=== PATIENT | female | born 1965 | race Caucasian/White ===

== ENCOUNTER 2016-07-30 11:10 | Emergency (ER) | payer BC ==
[~2016-07-30] VITALS: Ht 172.7 cm; Wt 122.4 kg
[~2016-07-30 11:10] MED LIST: IBUP-1955 PO; OXCA300T4 PO; TRAM50TA2 PO
[2016-07-30 11:39] LABS: *BILIRUBIN,URIN NEGATIVE (NEGATIVE); *BLOOD, URINE 2+ (NEGATIVE); *CLARITY,URINE SLIGHTLY CLOUDY (CLEAR); *COLOR,URINE YELLOW (YELLOW); *KETONES,URINE NEGATIVE (NEGATIVE); *PROTEIN,URINE TRACE (NEGATIVE); *UROBILINOGEN,URINE 0.2 E.U./dl (NORMAL); LEUKOCYTE ESTERASE ,URINE TRACE (NEGATIVE); NITRITE, URINE POSITIVE (NEGATIVE); UGLUCOSE NEGATIVE (NEGATIVE)
[2016-07-30 11:40] LABS: *URINE HCG, QUAL NEGATIVE (NEGATIVE)
[2016-07-30 11:46] LABS: BACTERIA,URINE MANY /HPF (NONE SEEN); SQUAMOUS EPITHELIAL CELL,UR MODERATE /HPF (NONE SEEN)
[2016-07-30] MEDS: FLUCONAZOLE 100 MG TABLET PO ONE (12:08)
[2016-07-30] MEDS: DOXYCYCLINE HYCLATE 100 MG TABLET PO ONE (12:08)
--- NOTE | 2016-07-30 12:16 | NUR ---
Patient discharged to home in stable conditon. Written and verbal after care instructions given, along with prescription as ordered by MD. Patient verbalizes understanding of instructions. No further questions or concerns noted prior on leaving the ED.
[2016-07-30] MEDS ORDERED: FLUCONAZOLE 100 MG TABLET ONE (12:17)
[2016-07-30] MEDS ORDERED: DOXYCYCLINE HYCLATE 100 MG TABLET ONE (12:17)
== END 2016-07-30 12:17 | disposition home or self-care (01) ==
LOC: ER 11:10
DX: N39.0 Urinary tract infection, site not specified (principal); F41.9 Anxiety disorder, unspecified; F31.9 Bipolar disorder, unspecified; Z87.442 Personal history of urinary calculi
CPT/HCPCS: 84703; 87077; 87086; 87491; A4663

== ENCOUNTER 2017-02-11 19:11 | Emergency (ER) | payer BC ==
[~2017-02-11] VITALS: Ht 170.2 cm; Wt 117.9 kg
[2017-02-11 19:55] LABS: *BILIRUBIN,URIN NEGATIVE (NEGATIVE); *BLOOD, URINE Trace-lysed (NEGATIVE); *CLARITY,URINE SLIGHTLY CLOUDY (CLEAR); *COLOR,URINE DARK YELLOW (YELLOW); *KETONES,URINE TRACE (NEGATIVE); *PROTEIN,URINE TRACE (NEGATIVE); *UROBILINOGEN,URINE 0.2 E.U./dl (NORMAL); LEUKOCYTE ESTERASE ,URINE 1+ (NEGATIVE); NITRITE, URINE POSITIVE (NEGATIVE); PH,URINE 6.5 (5.0-8.0); UGLUCOSE NEGATIVE (NEGATIVE)
[2017-02-11 19:56] LABS: *URINE HCG, QUAL NEGATIVE (NEGATIVE)
--- NOTE | 2017-02-11 20:00 | NUR ---
PT PRESENTS TO ED C/O ABN VAGINAL DISCHARGE AND PAIN UPON URINATION, WELL LOWER ABD/PELVIC PAIN. DENIES ANY OTHER SYMPTOMS. WILL PERFORM PELVIC EXAM W/ WET MOUNT.
[2017-02-11 20:07] LABS: BACTERIA,URINE MODERATE /HPF (NONE SEEN); MUCUS,URINE MODERATE /LPF (0-FEW); SQUAMOUS EPITHELIAL CELL,UR FEW /HPF (NONE SEEN); WBC,URINE 50-80 /HPF (0-3)
--- NOTE | 2017-02-11 20:10 | NUR ---
PT RESTING IN POSITION OF COMFORT, AWAITING PENDING UA REULTS
[2017-02-11] MEDS ORDERED: PHENAZOPYRIDINE HCL 100 MG TABLET PO ONE (20:30)
[2017-02-11] MEDS ORDERED: NITROFURANTOIN/NITROFURAN MAC 100 MG CAPSULE PO ONE (20:30)
--- NOTE | 2017-02-11 20:49 | NUR ---
Patient discharged to home in stable conditon. Written and verbal after care instructions given. Patient verbalizes understanding of instructions.
[2017-02-11 20:50] VITALS: BP 133/79
[2017-02-11] MEDS ORDERED: PHENAZOPYRIDINE HCL 100 MG TABLET ONE (20:53)
[2017-02-11] MEDS ORDERED: NITROFURANTOIN/NITROFURAN MAC 100 MG CAPSULE ONE (20:53)
== END 2017-02-11 20:50 | disposition home or self-care (01) ==
LOC: ER 19:16
DX: N30.00 Acute cystitis without hematuria (principal); Z87.442 Personal history of urinary calculi; Z90.49 Acquired absence of other specified parts of digestive tract
CPT/HCPCS: 84703; 87210; A4663

== ENCOUNTER 2017-02-18 13:30 | Emergency (ER) | payer BC, MEDICAID ==
[~2017-02-18] VITALS: Ht 170.2 cm; Wt 117.9 kg
[2017-02-18 15:50] LABS: *BLOOD, URINE Trace-intact (NEGATIVE); *CLARITY,URINE SLIGHTLY CLOUDY (CLEAR); *KETONES,URINE 1+ (NEGATIVE); *UROBILINOGEN,URINE >=8.0 E.U./dl (NORMAL); LEUKOCYTE ESTERASE ,URINE 3+ (NEGATIVE); NITRITE, URINE POSITIVE (NEGATIVE)
[2017-02-18 15:55] LABS: *BILIRUBIN,URIN 3+ (NEGATIVE); *PROTEIN,URINE 3+ (NEGATIVE); UGLUCOSE 1+ (NEGATIVE)
[2017-02-18 15:56] LABS: *COLOR,URINE ORANGE (YELLOW)
[2017-02-18 16:08] LABS: BACTERIA,URINE FEW /HPF (NONE SEEN); SQUAMOUS EPITHELIAL CELL,UR FEW /HPF (NONE SEEN)
[2017-02-18] MEDS ORDERED: AZITHROMYCIN 250 MG TABLET PO ONE (16:15)
[2017-02-18] MEDS ORDERED: CEFTRIAXONE 500 MG VIAL IM ONE (16:15)
[2017-02-18 16:27] VITALS: BP 121/79
[2017-02-18] MEDS ORDERED: AZITHROMYCIN 250 MG TABLET ONE (16:34)
[2017-02-18] MEDS ORDERED: CEFTRIAXONE 500 MG VIAL ONE (16:35)
[2017-02-18] MEDS ORDERED: LIDOCAINE HCL 1% 20 ML VIAL ONE (16:35)
== END 2017-02-18 16:29 | disposition home or self-care (01) ==
LOC: ER 13:30
DX: R30.0 Dysuria (principal); Z87.442 Personal history of urinary calculi; Z90.49 Acquired absence of other specified parts of digestive tract
CPT/HCPCS: 81001; 87077; 87086; 87186; 96372; 99284; A4663; J0696; J3490; Q0144

== ENCOUNTER 2017-11-02 20:04 | Inpatient (IN) | payer MEDICAID, OTHER ==
[~2017-11-02] VITALS: Ht 170.2 cm; Wt 113.6 kg
[2017-11-02 20:47] LABS: BASOPHILS % (AUTO) 0.7 % (0.0-2.0); EOSINOPHILS # (AUTO) 0.1 K/uL (0.0-0.7); EOSINOPHILS % (AUTO) 2.3 % (0.0-7.0); HEMATOCRIT 33.8 % (31.2-41.9); HEMOGLOBIN 11.8 g/dL (10.9-14.3); LYMPHOCYTES # (AUTO) 2.2 K/uL (20.0-40.0); LYMPHOCYTES % (AUTO) 34.5 % (20.5-51.5); MEAN CORPUSCULAR HEMOGLOBIN 31.9 uug (24.7-32.8); MEAN CORPUSCULAR HGB CONC 35 g/dL (32.3-35.6); MEAN CORPUSCULAR VOLUME 91.1 fL (75.5-95.3); MONOCYTES # (AUTO) 0.4 K/uL (2.0-10.0); MONOCYTES % (AUTO) 5.6 % (0.0-11.0); NEUTROPHILS # (AUTO) 3.7 K/uL (1.8-8.9); NEUTROPHILS % (AUTO) 56.9 % (38.5-71.5); PLATELET COUNT (AUTO) 233 K/uL (179-408); RED BLOOD CELL COUNT(AUTO) 3.71 MIL/uL (3.63-4.92); WHITE BLOOD COUNT (AUTO) 6.4 K/uL (3.8-11.8)
[2017-11-02 20:53] LABS: CARBON DIOXIDE 25 mmol/L (21-32); CHLORIDE 107 mmol/L (98-107); CREATININE 0.9 mg/dL (0.6-1.3); GLUCOSE 142 mg/dL (74-106); POTASSIUM 3.5 mmol/L (3.5-5.1); UREA NITROGEN, BLOOD 9 mg/dL (7-18)
[2017-11-02 21:10] LABS: ALANINE AMINOTRANSFERASE 15 U/L (14-59); ALKALINE PHOSPHATASE 85 U/L (50-136); ASPARTATE AMINOTRANSFERASE 12 U/L (15-37); BILIRUBIN,DIRECT < 0.1 mg/dL (0.0-0.2); BILIRUBIN,TOTAL 0.2 mg/dL (0.2-1.0)
--- NOTE | 2017-11-02 21:14 | NUR ---
:AMARIS AT BEDSIDE SPOKED WITH PATIENT AND EXAMINED PATIENT EXPLAINED PALN OF CARE AND TREATMENT AND TEST .
[2017-11-02] MEDS ORDERED: ONDANSETRON 4 MG/2 ML VIAL ONE (22:28)
[2017-11-02] MEDS ORDERED: ASPIRIN 81 MG TAB.CHEW ONE (22:28)
[2017-11-02] MEDS ORDERED: MORPHINE SULFATE 4 MG/1 ML DISP.SYRIN ONE (22:28)
[2017-11-02] MEDS ORDERED: ONDANSETRON IV *ER 4 MG/2 ML VIAL IV ONE (22:30)
[2017-11-02] MEDS ORDERED: ASPIRIN 81 MG TAB.CHEW PO ONE (22:30)
[2017-11-02] MEDS ORDERED: MORPHINE SULFATE 4 MG/1 ML DISP.SYRIN IV ONE (22:30)
--- NOTE | 2017-11-02 22:36 | NUR ---
DOCTOR :AMARIS AT BEDSIDE SPOKED WITH PATIENT AND ASKED ABOUT HER CHEST PAIN , PER PATIENT SHE IS PASSING LOTS OF GAS AND BURPING .
--- NOTE | 2017-11-02 23:42 | NUR ---
PATIENT IN BED RESTING AWAKE , WHEN ASKED SHE SAID HER CHEST PAIN IS NOW 2/10.CONTINUE TO MONITOR LEVELS OF PAIN . ADVISED TO CALL FOR HELP AND TO CALL FOR DISCOMFORT .
[2017-11-03] MEDS ORDERED: TRAZ-182 PO ×2 (00:30→14:40)
[2017-11-03] MEDS ORDERED: OXCA600T5 PO (00:30)
--- NOTE | 2017-11-03 00:49 | NUR ---
PATIENT TO BE ADMITTED , GOING TO ROOM 214.DOCTOR AMARIS SPOKED TO PATIENT AND ITS BEST FOR HER TO BE ADMITTED AND TO STAY OVERNIGHT .
[2017-11-03] MEDS ORDERED: SIMETHICONE 80 MG TAB.CHEW PO ONE (01:00)
[2017-11-03] MEDS ORDERED: ACETAMINOPHEN 325 MG TABLET PO PRN (01:00)
[2017-11-03] MEDS ORDERED: DOCUSATE SODIUM 100 MG CAPSULE PO PRN (01:00)
[2017-11-03] MEDS ORDERED: MORPHINE SULFATE 2 MG/1 ML DISP.SYRIN IV PRN (01:00)
[2017-11-03] MEDS ORDERED: ONDANSETRON 4 MG/2 ML VIAL IV PRN (01:00)
[2017-11-03] MEDS ORDERED: TRAZODONE 50 MG TABLET PO PRN ×2 (01:00→14:41)
[2017-11-03] MEDS ORDERED: MAG HYDROX/AL HYDROX/SIMETH 30 ML LIQUID UDC PO PRN (01:00)
[2017-11-03] MEDS ORDERED: NITROGLYCERIN 0.4 MG/TAB BOTTLE SL PRN (01:00)
--- NOTE | 2017-11-03 01:07 | NUR ---
Pt. admitted to TELEMETRY, under care of /DERIK SUAREZ [place] completed
--- NOTE | 2017-11-03 01:08 | NUR ---
REPORT GIVEN TO OLLIE AGUAYO USING SBAR .DX:CHEST PAIN .
--- NOTE | 2017-11-03 01:32 | NUR ---
Received patient from ER via [place]. A/O x 4. In no apparent distress. C/o chest pain 5/10. IV on the right wrist patent and intact. Vital signs taken, stable, no temperature and sating at 96%. TELE Sinus Vish. No skin issues noted. Ambulatory with steady gait. Safety initiated. Call light within reach. Room is clutter free. Bed is in low and locked position. Will closely monitor.
[2017-11-03 01:45] VITALS: BP 120/61
[2017-11-03 03:48] VITALS: BP 118/62
--- NOTE | 2017-11-03 05:44 | NUR ---
No changes t/o shift. TELE SB at 49. Vital signs stable. Safety and comfort measures maintained t/o shift. All meds given as ordered. All needs met.
--- NOTE | 2017-11-03 08:00 | NUR ---
awake alert cooperate NO SOB OR PAIN AT THIS TIME RESTING WELL IN BED WITH CALL LIGHT IN REACH AND INSTRUCTION TO CALL WHEN NEED
[2017-11-03] MEDS ORDERED: OXCARBAZEPINE 300 MG TABLET PO SCH ×3 (09:00→21:00)
[2017-11-03] MEDS ORDERED: ASPIRIN 325 MG TABLET PO SCH (09:00)
--- NOTE | 2017-11-03 11:02 | NUR ---
INFORMATION SENT:FACESHEET, ADMIT ORDER, ER INSURANCE NAME:[facility] FAX NUMBER:[phone] / [phone] FAX SENT
[2017-11-03] MEDS ORDERED: MORPHINE SULFATE 4 MG/1 ML DISP.SYRIN IV PRN (11:15)
[2017-11-03 11:30] VITALS: BP 127/65
[2017-11-03 15:25] VITALS: BP 122/59
--- NOTE | 2017-11-03 16:30 | NUR ---
DR CHILEL SEE PATIENT AND ORDER OK TO D/C TELE
--- NOTE | 2017-11-03 18:00 | NUR ---
STABLE HEMODYNAMIC PAIN UNDER CONTROL RESTING WELL WITH CALL LIGHT IN REACH
[2017-11-03] MEDS ORDERED: OMEP20TA20 PO (19:28)
--- NOTE | 2017-11-03 19:30 | NUR ---
Received patient from day shift nurse. Patient stable at start of shift with no acute distress. Vital signs within range. Pertinent assessment completed. A/Ox4, sitting in bed & denying pain & SOB. Patient states that she is ready to go home & waiting for the discharge order. Noted with a right hand 20G IV site which is locked. Call light within reach. Will continue to monitor through shift.
[2017-11-03 19:47] VITALS: BP 130/55
--- NOTE | 2017-11-03 20:48 | NUR ---
Patient discharged to home per MD order. Patient in stable condition with no acute distress. No chest pain or SOB noted. Vital signs stable upon discharge. Discharge instructions given to patient. All belongings with patient at discharge. Patient leaving with family via car. Assisted & walked with patient.
[2017-11-03] MEDS ORDERED: TRAMADOL HCL 50 MG TABLET PO SCH (21:00)
[2017-11-03] MEDS ORDERED: SIMVASTATIN 20 MG TABLET PO SCH (21:00)
[2017-11-03] MEDS ORDERED: OXCARBAZEPINE 1200 MG PO SCH (21:00)
== END 2017-11-03 20:48 | disposition home or self-care (01) | DRG 243 ==
LOC: ER 20:05 → TELE 11-03 00:30 → MED 11-03 17:20
PROVIDERS: ADMIT Registered Nurse; ATTEND Internal Medicine
DX: K21.9 Gastro-esophageal reflux disease without esophagitis (principal); E66.9 Obesity, unspecified; F31.81 Bipolar II disorder; Z90.49 Acquired absence of other specified parts of digestive tract; Z87.442 Personal history of urinary calculi; F41.9 Anxiety disorder, unspecified; K58.2 Mixed irritable bowel syndrome; R10.13 Epigastric pain; Z68.39 Body mass index [BMI] 39.0-39.9, adult; R73.9 Hyperglycemia, unspecified
CPT/HCPCS: 36415; 70030-TC; 71045; 85025; 85730; 93005; 93307; A4663; J2270; J2405

== ENCOUNTER 2018-07-30 16:06 | Emergency (ER) | payer BC, OTHER ==
[~2018-07-30] VITALS: Ht 170.2 cm; Wt 113.4 kg
[~2018-07-30 16:06] MED LIST changes: -IBUP-1955 PO; +OMEP20TA20 PO; -OXCA300T4 PO; +OXCA600T5 PO; -TRAM50TA2 PO; +TRAZ-182 PO
--- NOTE | 2018-07-30 16:52 | NUR ---
ERI ZURITA AT BEDSIDE FOR MSE.
[2018-07-30] MEDS ORDERED: HYDROMORPHONE 1 MG/1 ML DISP.SYRIN IM ONE (17:00)
[2018-07-30] MEDS ORDERED: ONDANSETRON ODT 4 MG TAB.RAPDIS SL ONE (17:00)
[2018-07-30] MEDS ORDERED: HYDROMORPHONE 1 MG/1 ML DISP.SYRIN ONE (17:01)
[2018-07-30] MEDS ORDERED: ONDANSETRON ODT 4 MG TAB.RAPDIS ONE (17:01)
--- NOTE | 2018-07-30 17:35 | NUR ---
Patient discharged to home in stable conditon. Written and verbal after care instructions given. Patient verbalizes understanding of instructions. ALL BELONGINGS W/ PT. PT SELF-AMBULATED W/O DIFFICULTY.
[2018-07-30 17:36] VITALS: BP 153/81
== END 2018-07-30 17:37 | disposition home or self-care (01) ==
LOC: ER 16:06
DX: K08.89 Other specified disorders of teeth and supporting structures (principal); Z90.49 Acquired absence of other specified parts of digestive tract; Z79.899 Other long term (current) drug therapy
CPT/HCPCS: 96372; 99283; J1170; A4663; Q0162

== ENCOUNTER 2018-08-21 14:35 | Emergency (ER) | payer BC, MEDICAID, OTHER ==
[~2018-08-21] VITALS: Ht 170.2 cm; Wt 117.9 kg
[2018-08-21 15:06] LABS: *BILIRUBIN,URIN NEGATIVE (NEGATIVE); *BLOOD, URINE 1+ (NEGATIVE); *CLARITY,URINE SLIGHTLY CLOUDY (CLEAR); *COLOR,URINE DARK YELLOW (YELLOW); *KETONES,URINE NEGATIVE (NEGATIVE); *UROBILINOGEN,URINE 0.2 E.U./dl (NORMAL); LEUKOCYTE ESTERASE ,URINE 1+ (NEGATIVE); NITRITE, URINE NEGATIVE (NEGATIVE); PH,URINE 5.5 (5.0-8.0); UGLUCOSE NEGATIVE (NEGATIVE)
[2018-08-21 15:13] LABS: BACTERIA,URINE FEW /HPF (NONE SEEN); SQUAMOUS EPITHELIAL CELL,UR MODERATE /HPF (NONE SEEN)
[2018-08-21] MEDS ORDERED: CEphaleXIN 500 MG CAPSULE ONE (15:24)
[2018-08-21] MEDS ORDERED: PHENAZOPYRIDINE HCL 100 MG TABLET ONE (15:24)
[2018-08-21] MEDS ORDERED: PHENAZOPYRIDINE HCL 100 MG TABLET PO ONE (15:30)
[2018-08-21] MEDS ORDERED: CEphaleXIN 500 MG CAPSULE PO ONE (15:30)
--- NOTE | 2018-08-21 15:35 | NUR ---
Patient discharged to home in stable conditon. Written and verbal after care instructions given. Patient verbalizes understanding of instructions. AMBULATORY. NOT IN ANY FORM OF DISTRESS.
[2018-08-21 15:36] VITALS: BP 110/84
== END 2018-08-21 15:39 | disposition home or self-care (01) ==
LOC: ER 14:35
DX: N39.0 Urinary tract infection, site not specified (principal); Z90.49 Acquired absence of other specified parts of digestive tract; Z79.899 Other long term (current) drug therapy
CPT/HCPCS: 87086; A4663

== ENCOUNTER 2018-09-13 18:05 | Emergency (ER) | payer MEDICAID, OTHER ==
[~2018-09-13] VITALS: Ht 167.6 cm; Wt 113.4 kg
[2018-09-13] MEDS ORDERED: OXCA600T5 PO (18:41)
--- NOTE | 2018-09-13 19:03 | NUR ---
SHIFT REPORT GIVEN TO NANETTE LEVIN.
--- NOTE | 2018-09-13 19:23 | NUR ---
DR. ROUSE AT BEDSIDE FOR MSE.
[2018-09-13] MEDS: predniSONE 20 MG TABLET PO ONE (19:31)
[2018-09-13] MEDS ORDERED: predniSONE 20 MG TABLET ONE (19:32)
--- NOTE | 2018-09-13 20:42 | NUR ---
Patient discharged to home in stable conditon. Written and verbal after care instructions given. Patient verbalizes understanding of instructions. PATIENT LEFT WITH STABLE GAIT.
[2018-09-13 20:44] VITALS: BP 143/86
== END 2018-09-13 20:44 | disposition home or self-care (01) ==
LOC: ER 18:05
DX: M54.41 Lumbago with sciatica, right side (principal); F31.9 Bipolar disorder, unspecified; Z90.49 Acquired absence of other specified parts of digestive tract; Z79.899 Other long term (current) drug therapy
CPT/HCPCS: 73502; 99283; J7512; A4663

== ENCOUNTER 2019-01-26 19:01 | Emergency (ER) | payer BC, OTHER ==
[~2019-01-26] VITALS: Ht 170.2 cm; Wt 113.4 kg
[~2019-01-26 19:01] MED LIST changes: -OMEP20TA20 PO; -TRAZ-182 PO
[2019-01-26 20:13] LABS: *BILIRUBIN,URIN NEGATIVE (NEGATIVE); *BLOOD, URINE 1+ (NEGATIVE); *CLARITY,URINE CLOUDY (CLEAR); *COLOR,URINE YELLOW (YELLOW); *KETONES,URINE NEGATIVE (NEGATIVE); *UROBILINOGEN,URINE 0.2 E.U./dl (NORMAL); LEUKOCYTE ESTERASE ,URINE 2+ (NEGATIVE); NITRITE, URINE NEGATIVE (NEGATIVE); UGLUCOSE NEGATIVE (NEGATIVE)
[2019-01-26 20:20] LABS: BACTERIA,URINE 1 /HPF (NONE SEEN); WBC,URINE 20-50 /HPF (0-3)
[2019-01-26] MEDS ORDERED: HYDROCODONE/APAP 10-325 MG TABLET ONE (20:44)
[2019-01-26] MEDS ORDERED: CEphaleXIN 500 MG CAPSULE PO ONE (20:45)
[2019-01-26] MEDS ORDERED: NITROFURANTOIN/NITROFURAN MAC 100 MG CAPSULE PO ONE (20:45)
[2019-01-26] MEDS ORDERED: PHENAZOPYRIDINE HCL 100 MG TABLET PO ONE (20:45)
[2019-01-26] MEDS ORDERED: CEphaleXIN 500 MG CAPSULE ONE (20:49)
[2019-01-26] MEDS ORDERED: PHENAZOPYRIDINE HCL 100 MG TABLET ONE (20:49)
[2019-01-26] MEDS ORDERED: NITROFURANTOIN/NITROFURAN MAC 100 MG CAPSULE ONE (20:49)
--- NOTE | 2019-01-26 20:53 | NUR ---
Patient discharged to home in stable conditon. Written and verbal after care instructions given. Patient verbalizes understanding of instructions. Patient ambulated out of ER with stable gait.
[2019-01-26 20:54] VITALS: BP 137/72
[2019-01-26] MEDS ORDERED: HYDROCODONE/APAP 10-325 MG TABLET PO ONE (21:00)
== END 2019-01-26 20:56 | disposition home or self-care (01) ==
LOC: ER 19:05
DX: N39.0 Urinary tract infection, site not specified (principal); F31.9 Bipolar disorder, unspecified; Z90.49 Acquired absence of other specified parts of digestive tract; Z79.899 Other long term (current) drug therapy
CPT/HCPCS: 87086; A4663

== ENCOUNTER 2020-08-13 14:50 | Emergency (ER) | payer BC, MEDICAID, OTHER ==
[~2020-08-13] VITALS: Ht 170.2 cm; Wt 113.4 kg
--- NOTE | 2020-08-13 15:05 | NUR ---
Dr Gonzalo Mccain at bedside for MSE.
[2020-08-13 15:29] LABS: *BILIRUBIN,URIN NEGATIVE (NEGATIVE); *BLOOD, URINE TRACE LYSED (NEGATIVE); *CLARITY,URINE CLEAR (CLEAR); *COLOR,URINE YELLOW (YELLOW); *KETONES,URINE NEGATIVE (NEGATIVE); *UROBILINOGEN,URINE 0.2 E.U./dl (NORMAL); LEUKOCYTE ESTERASE ,URINE TRACE (NEGATIVE); NITRITE, URINE NEGATIVE (NEGATIVE); PH,URINE 7.5 (5.0-8.0); UGLUCOSE NEGATIVE (NEGATIVE)
[2020-08-13 15:37] LABS: BACTERIA,URINE FEW /HPF (NONE SEEN); MUCUS,URINE FEW /LPF (0-FEW); SQUAMOUS EPITHELIAL CELL,UR FEW /HPF (NONE SEEN); URINE AMORPHOUS PHOSPHATES FEW /HPF
[2020-08-13] MEDS ORDERED: NITR-104 PO (16:07)
--- NOTE | 2020-08-13 16:12 | NUR ---
ERMD cleared patient for DC. Written and verbal after care instructions given. Patient verbalizes understanding of instructions. Stressed follow up or return to ER for worsening s/s. Patient discharged to home in stable condition. Ambulated out of ED in steady gait.
[2020-08-13 16:13] VITALS: BP 150/60
== END 2020-08-13 16:14 | disposition home or self-care (01) ==
LOC: ER 14:51
DX: N30.01 Acute cystitis with hematuria (principal); F31.9 Bipolar disorder, unspecified; Z90.49 Acquired absence of other specified parts of digestive tract; Z87.442 Personal history of urinary calculi
CPT/HCPCS: 87086; A4663

== ENCOUNTER 2020-11-29 14:58 | Emergency (ER) | payer MEDICAID ==
[~2020-11-29] VITALS: Ht 170.2 cm; Wt 113.4 kg
[~2020-11-29 14:58] MED LIST changes: +NITR-104 PO
--- NOTE | 2020-11-29 15:11 | NUR ---
at bedside for assessment
[2020-11-29 15:20] LABS: *BILIRUBIN,URIN NEGATIVE (NEGATIVE); *BLOOD, URINE 2+ (NEGATIVE); *CLARITY,URINE CLEAR (CLEAR); *COLOR,URINE Orange (YELLOW); *KETONES,URINE TRACE (NEGATIVE); LEUKOCYTE ESTERASE ,URINE TRACE (NEGATIVE); NITRITE, URINE POSITIVE (NEGATIVE); PH,URINE 5.5 (5.0-8.0); UGLUCOSE TRACE (NEGATIVE)
[2020-11-29] MEDS ORDERED: HYDROCODONE/APAP 5-325MG TABLET PO ONE (15:30)
[2020-11-29] MEDS ORDERED: HYDROCODONE/APAP 5-325MG TABLET ONE (15:32)
[2020-11-29 15:39] LABS: HEMATOCRIT 37.4 % (31.2-41.9); MEAN CORPUSCULAR HEMOGLOBIN 30.6 uug (24.7-32.8); MEAN CORPUSCULAR VOLUME 90.1 fL (75.5-95.3); PLATELET COUNT (AUTO) 238 K/uL (179-408)
[2020-11-29 15:40] LABS: CARBON DIOXIDE 23 mmol/L (21-32); CHLORIDE 100 mmol/L (98-107); CREATININE 0.9 mg/dL (0.6-1.3); GLUCOSE 93 mg/dL (74-106); POTASSIUM 4.4 mmol/L (3.5-5.1); UREA NITROGEN, BLOOD 13 mg/dL (7-18)
[2020-11-29 15:46] LABS: ALANINE AMINOTRANSFERASE 15 U/L (14-59); ALKALINE PHOSPHATASE 89 U/L (50-136); ASPARTATE AMINOTRANSFERASE 13 U/L (15-37); BILIRUBIN,DIRECT < 0.1 mg/dL (0.0-0.2); BILIRUBIN,TOTAL 0.2 mg/dL (0.2-1.0); TOTAL PROTEIN, SERUM 7.6 g/dL (6.4-8.2)
[2020-11-29] MEDS ORDERED: CEPH500C2 PO (15:54)
[2020-11-29] MEDS ORDERED: TRAM50TA2 PO (15:54)
--- NOTE | 2020-11-29 16:01 | NUR ---
Patient discharged to home in stable condition. No signs of distress noted, patient noted ambulating with steady gait, states her boyfriend will be picking her up. Written and verbal after care instructions given. Patient verbalizes understanding of instructions. Stressed follow up or return to ER for worsening s/s.
[2020-11-29 16:02] VITALS: BP 124/80
[2020-11-29 16:51] LABS: BACTERIA,URINE FEW /HPF (NONE SEEN); SQUAMOUS EPITHELIAL CELL,UR FEW /HPF (NONE SEEN); WBC,URINE 20-50 /HPF (0-3)
== END 2020-11-29 16:00 | disposition home or self-care (01) ==
LOC: ER 15:00
DX: N30.01 Acute cystitis with hematuria (principal); Z90.49 Acquired absence of other specified parts of digestive tract; F31.9 Bipolar disorder, unspecified; Z79.899 Other long term (current) drug therapy; Z87.442 Personal history of urinary calculi
CPT/HCPCS: 36415; 85025; 87086; A4663

== ENCOUNTER 2021-02-24 16:43 | Emergency (ER) | payer MEDICAID ==
[~2021-02-24 16:43] MED LIST changes: +CEPH500C2 PO; +TRAM50TA2 PO
[2021-02-24] MEDS ORDERED: CEPH500T PO (17:08)
[2021-02-24] MEDS ORDERED: PHEN-705 PO (17:09)
[2021-02-24 17:17] LABS: *BLOOD, URINE 1+ (NEGATIVE); *COLOR,URINE Orange (YELLOW); *KETONES,URINE 1+ (NEGATIVE); LEUKOCYTE ESTERASE ,URINE 3+ (NEGATIVE); NITRITE, URINE POSITIVE (NEGATIVE); UGLUCOSE TRACE (NEGATIVE)
[2021-02-24 17:25] LABS: *BILIRUBIN,URIN 1+ (NEGATIVE)
[2021-02-24 17:28] LABS: *CLARITY,URINE SLIGHTLY CLOUDY (CLEAR); BACTERIA,URINE FEW /HPF (NONE SEEN); SQUAMOUS EPITHELIAL CELL,UR MODERATE /HPF (NONE SEEN); WBC,URINE 50-80 /HPF (0-3)
--- NOTE | 2021-02-24 17:49 | NUR ---
PT WAS EVALUATED BY DR GUEVARA IN WAITING ROOM . PT WAS D/C'd TO HOME BY DR GUEVARA. D/C INSTRUCTIONS GIVEN TO THE PT BY DR GUEVARA.
== END 2021-02-24 17:50 | disposition home or self-care (01) ==
LOC: ER 16:45
DX: N30.00 Acute cystitis without hematuria (principal); Z87.442 Personal history of urinary calculi; F31.9 Bipolar disorder, unspecified; Z90.49 Acquired absence of other specified parts of digestive tract
CPT/HCPCS: 87086; A4663

== ENCOUNTER 2021-05-16 14:46 | Emergency (ER) | payer MEDICAID ==
[~2021-05-16] VITALS: Ht 167.6 cm; Wt 114.8 kg
[~2021-05-16 14:46] MED LIST changes: +CEPH500T PO; +PHEN-705 PO
--- NOTE | 2021-05-16 15:24 | NUR ---
Pending MD evaluation. Patient ambulatory, alert and oriented x4, complaints of chronic lower back pain 09/30. Patient no episodes of nausea/vomiting, not in distress.
--- NOTE | 2021-05-16 15:26 | NUR ---
[email or web address], medical screening exam in progress
[2021-05-16] MEDS ORDERED: LIDOCAINE 5% PATCH TD ONE ×2 (15:45→15:58)
[2021-05-16] MEDS ORDERED: ACETAMINOPHEN 325 MG TABLET PO ONE (15:45)
[2021-05-16] MEDS ORDERED: MORPHINE SULFATE 4 MG/1 ML DISP.SYRIN IM ONE (15:45)
[2021-05-16] MEDS ORDERED: ACETAMINOPHEN 325 MG TABLET ONE (15:57)
[2021-05-16] MEDS ORDERED: MORPHINE SULFATE 4 MG/1 ML DISP.SYRIN ONE (15:58)
[2021-05-16] MEDS ORDERED: ACET-2154 PO (16:20)
[2021-05-16] MEDS ORDERED: LIDO30AD10 TP ×2 (16:20→16:28)
[2021-05-16] MEDS ORDERED: METH4TAB3 PO (16:20)
[2021-05-16] MEDS ORDERED: BACL10TA PO (16:20)
[2021-05-16] MEDS ORDERED: NITR100C6 PO (16:28)
--- NOTE | 2021-05-16 16:49 | NUR ---
Patient discharged to home in stable condition. Written and verbal after care instructions given. Patient verbalizes understanding of instructions. Stressed follow up or return to ER for worsening s/s. Instructed not to drive.
== END 2021-05-16 16:49 | disposition home or self-care (01) ==
LOC: ER 14:51
DX: M54.9 Dorsalgia, unspecified (principal); G89.29 Other chronic pain; Z90.49 Acquired absence of other specified parts of digestive tract; Z87.442 Personal history of urinary calculi; F31.9 Bipolar disorder, unspecified; E66.9 Obesity, unspecified; Z68.41 Body mass index [BMI] 40.0-44.9, adult
CPT/HCPCS: 96372; 99283; J2270; A4663

== ENCOUNTER 2021-11-15 13:38 | Emergency (ER) | payer MEDICAID ==
[~2021-11-15] VITALS: Ht 170.2 cm; Wt 113.4 kg
[~2021-11-15 13:38] MED LIST changes: +ACET-2154 PO; +BACL10TA PO; +LIDO30AD10 TP; +METH4TAB3 PO; +NITR100C6 PO
--- NOTE | 2021-11-15 14:20 | NUR ---
at bedside for evaluation.
[2021-11-15 14:29] LABS: *BILIRUBIN,URIN NEGATIVE (NEGATIVE); *COLOR,URINE YELLOW (YELLOW); *KETONES,URINE NEGATIVE (NEGATIVE); *UROBILINOGEN,URINE 0.2 E.U./dl (NORMAL); LEUKOCYTE ESTERASE ,URINE NEGATIVE (NEGATIVE); NITRITE, URINE POSITIVE (NEGATIVE); PH,URINE 5.5 (5.0-8.0); UGLUCOSE NEGATIVE (NEGATIVE)
[2021-11-15 14:30] LABS: *BLOOD, URINE TRACE (NEGATIVE); *CLARITY,URINE SLIGHTLY CLOUDY (CLEAR)
[2021-11-15 14:34] LABS: BACTERIA,URINE NONE SEEN /HPF (NONE SEEN); RBC,URINE 0-3 /HPF (0-3); SQUAMOUS EPITHELIAL CELL,UR FEW /HPF (NONE SEEN)
[2021-11-15] MEDS ORDERED: CEFP200T14 PO (14:47)
--- NOTE | 2021-11-15 14:51 | NUR ---
Patient discharged to home in stable condition. Written and verbal after care instructions given. Patient verbalizes understanding of instructions. Stressed follow up or return to ER for worsening s/s.
[2021-11-15] MEDS ORDERED: PHEN-894 PO (14:52)
[2021-11-15 14:58] VITALS: BP 130/70
== END 2021-11-15 14:59 | disposition home or self-care (01) ==
LOC: ER 13:38
DX: N30.00 Acute cystitis without hematuria (principal); Z87.440 Personal history of urinary (tract) infections; Z90.49 Acquired absence of other specified parts of digestive tract; Z87.442 Personal history of urinary calculi; F31.9 Bipolar disorder, unspecified; F41.9 Anxiety disorder, unspecified
CPT/HCPCS: 87086; A4663

== ENCOUNTER 2022-03-25 18:19 | Emergency (ER) | payer MEDICAID ==
[~2022-03-25] VITALS: Ht 170.2 cm; Wt 113.4 kg
[~2022-03-25 18:19] MED LIST changes: +CEFP200T14 PO; +PHEN-894 PO
[2022-03-25] MEDS ORDERED: NITR100C6 PO (18:53)
[2022-03-25 19:02] LABS: *BILIRUBIN,URIN NEGATIVE (NEGATIVE); *CLARITY,URINE CLEAR (CLEAR); *COLOR,URINE YELLOW (YELLOW); *KETONES,URINE NEGATIVE (NEGATIVE); *UROBILINOGEN,URINE 0.2 E.U./dl (NORMAL); LEUKOCYTE ESTERASE ,URINE NEGATIVE (NEGATIVE); NITRITE, URINE POSITIVE (NEGATIVE); UGLUCOSE NEGATIVE (NEGATIVE)
--- NOTE | 2022-03-25 19:03 | NUR ---
Patient discharged to home in stable condition with brisk steady gait. Written and verbal after care instructions given. Patient verbalized understanding and compliance of instructions. Stressed follow up primary doctor and urologist or return to ER for worsening s/s.
[2022-03-25 19:04] LABS: *BLOOD, URINE TRACE (NEGATIVE)
[2022-03-25 19:33] LABS: BACTERIA,URINE FEW /HPF (NONE SEEN); SQUAMOUS EPITHELIAL CELL,UR FEW /HPF (NONE SEEN); URINE AMORPHOUS URATE FEW /HPF
== END 2022-03-25 19:04 | disposition home or self-care (01) ==
LOC: ER 18:19
DX: N30.00 Acute cystitis without hematuria (principal); Z90.49 Acquired absence of other specified parts of digestive tract; F31.9 Bipolar disorder, unspecified; Z79.899 Other long term (current) drug therapy
CPT/HCPCS: A4663

== ENCOUNTER 2022-09-28 21:27 | Emergency (ER) | payer MEDICAID ==
[~2022-09-28] VITALS: Ht 167.6 cm; Wt 113.4 kg
[2022-09-28 22:20] LABS: BASOPHILS % (AUTO) 0.3 % (0.0-2.0); EOSINOPHILS # (AUTO) 0.1 K/uL (0.0-0.7); EOSINOPHILS % (AUTO) 1.6 % (0.0-7.0); HEMATOCRIT 37.5 % (31.2-41.9); HEMOGLOBIN 12.8 g/dL (10.9-14.3); LYMPHOCYTES # (AUTO) 2.2 K/uL (0.8-4.8); LYMPHOCYTES % (AUTO) 31.4 % (20.5-51.5); MEAN CORPUSCULAR HEMOGLOBIN 30.6 uug (24.7-32.8); MEAN CORPUSCULAR HGB CONC 34 g/dL (32.3-35.6); MONOCYTES # (AUTO) 0.6 K/uL (0.1-1.30); MONOCYTES % (AUTO) 7.9 % (0.0-11.0); NEUTROPHILS # (AUTO) 4.2 K/uL (1.8-8.9); NEUTROPHILS % (AUTO) 58.8 % (38.5-71.5); PLATELET COUNT (AUTO) 223 K/uL (179-408); RED BLOOD CELL COUNT(AUTO) 4.17 MIL/uL (3.63-4.92); RED CELL DISTRIBUTION WIDTH 13.9 % (12.3-17.7); WHITE BLOOD COUNT (AUTO) 7.2 K/uL (3.8-11.8)
[2022-09-28] MEDS ORDERED: DIAZEPAM 2 MG TABLET ONE (22:20)
[2022-09-28] MEDS ORDERED: DIAZEPAM 2 MG TABLET PO ONE (22:30)
[2022-09-28 22:35] LABS: DIFFERENTIAL COMMENT 1
[2022-09-28 22:39] LABS: CALCIUM 8.8 mg/dL (8.5-10.1); CREATININE 0.8 mg/dL (0.6-1.3); POTASSIUM 4.1 mmol/L (3.5-5.1)
[2022-09-28 22:48] LABS: ALBUMIN 3.4 g/dL (3.4-5.0); BILIRUBIN,DIRECT 0.1 mg/dL (0.0-0.2); BILIRUBIN,TOTAL 0.3 mg/dL (0.2-1.0); TOTAL PROTEIN, SERUM 7.4 g/dL (6.4-8.2)
[2022-09-28 23:12] LABS: *BILIRUBIN,URIN NEGATIVE (NEGATIVE); *BLOOD, URINE NEGATIVE (NEGATIVE); *CLARITY,URINE CLEAR (CLEAR); *COLOR,URINE YELLOW (YELLOW); *KETONES,URINE NEGATIVE (NEGATIVE); *PROTEIN,URINE NEGATIVE (NEGATIVE); *UROBILINOGEN,URINE 0.2 E.U./dl (NORMAL); LEUKOCYTE ESTERASE ,URINE NEGATIVE (NEGATIVE); NITRITE, URINE NEGATIVE (NEGATIVE); PH,URINE 6.5 (5.0-8.0); UGLUCOSE NEGATIVE (NEGATIVE)
[2022-09-29] MEDS ORDERED: OXYCODONE/APAP 5-325 MG TABLET ONE (00:50)
[2022-09-29] MEDS ORDERED: OXYCODONE/APAP 5-325 MG TABLET PO ONE (01:00)
[2022-09-29] MEDS ORDERED: OXYC-128 PO (01:34)
[2022-09-29] MEDS ORDERED: DIAZ5TAB4 PO (01:34)
[2022-09-29 02:07] VITALS: BP 115/65; TEMP 98.4; O2SAT 98
== END 2022-09-29 01:45 | disposition home or self-care (01) ==
LOC: ER 21:27
DX: R10.30 Lower abdominal pain, unspecified (principal); R11.2 Nausea with vomiting, unspecified; R10.2 Pelvic and perineal pain; Z90.49 Acquired absence of other specified parts of digestive tract; Z79.899 Other long term (current) drug therapy
CPT/HCPCS: 36415; 76856; 83690; 85025; 87210; A4663

== ENCOUNTER 2022-12-16 16:02 | Emergency (ER) | payer MEDICAID ==
[~2022-12-16] VITALS: Ht 170.2 cm; Wt 113.4 kg
[~2022-12-16 16:02] MED LIST changes: +DIAZ5TAB4 PO; +OXYC-128 PO
[2022-12-16] MEDS ORDERED: GABA100C PO (16:20)
[2022-12-16] MEDS ORDERED: DEXT10TA7 PO (16:20)
[2022-12-16] MEDS ORDERED: FAMOTIDINE 20 MG TABLET ONE (16:42)
[2022-12-16] MEDS ORDERED: KETOROLAC TROMETHAMINE 30 MG INJ ONE (16:42)
[2022-12-16] MEDS ORDERED: DIAZEPAM 2 MG TABLET PO ONE (16:45)
[2022-12-16] MEDS ORDERED: FAMOTIDINE 20 MG TABLET PO ONE (16:45)
[2022-12-16] MEDS ORDERED: KETOROLAC TROMETHAMINE 30 MG INJ IM ONE (16:45)
[2022-12-16] MEDS ORDERED: DIAZEPAM 5 MG TABLET ONE (16:46)
[2022-12-16 17:08] LABS: *CLARITY,URINE SLIGHTLY CLOUDY (CLEAR); *COLOR,URINE AMBER (YELLOW); *KETONES,URINE TRACE (NEGATIVE); *PROTEIN,URINE 1+ (NEGATIVE); LEUKOCYTE ESTERASE ,URINE NEGATIVE (NEGATIVE); NITRITE, URINE POSITIVE (NEGATIVE); PH,URINE 6.5 (5.0-8.0); UGLUCOSE TRACE (NEGATIVE)
[2022-12-16 17:18] LABS: *BILIRUBIN,URIN 1+ (NEGATIVE); *BLOOD, URINE TRACE (NEGATIVE)
[2022-12-16] MEDS ORDERED: CEPH500C2 PO (17:33)
[2022-12-16] MEDS ORDERED: OXYC5CAP18 PO (17:33)
[2022-12-16] MEDS ORDERED: FAMO-132 PO (17:34)
[2022-12-16] MEDS ORDERED: CEphaleXIN 500 MG CAPSULE PO ONE (17:45)
[2022-12-16] MEDS ORDERED: TRAM50TA2 PO (18:05)
[2022-12-16 18:20] VITALS: BP 122/70; TEMP 98; O2SAT 99
[2022-12-16 20:12] LABS: BACTERIA,URINE MANY /HPF (NONE SEEN); SQUAMOUS EPITHELIAL CELL,UR MODERATE /HPF (NONE SEEN); WBC,URINE 0-3 /HPF (0-3)
== END 2022-12-16 18:21 | disposition home or self-care (01) ==
LOC: ER 16:05
DX: R30.0 Dysuria (principal); R10.30 Lower abdominal pain, unspecified; K21.9 Gastro-esophageal reflux disease without esophagitis; Z90.49 Acquired absence of other specified parts of digestive tract; Z79.899 Other long term (current) drug therapy
CPT/HCPCS: 99284; 81001; 72110; 72220; 96372; 87086; J1885; A4606; A4663

== ENCOUNTER 2023-06-17 15:55 | Emergency (ER) | payer MEDICAID, OTHER ==
[~2023-06-17] VITALS: Ht 167.6 cm; Wt 113.4 kg
[~2023-06-17 15:55] MED LIST changes: -BACL10TA PO; -CEFP200T14 PO; -CEPH500T PO; +DEXT10TA7 PO; +DOXY100C5 PO; +FAMO-132 PO; +GABA100C PO; -METH4TAB3 PO; -NITR-104 PO; +NITR-84 PO; -NITR100C6 PO; -OXYC-128 PO; +OXYC5CAP18 PO; -PHEN-894 PO
[2023-06-17 18:14] LABS: *CLARITY,URINE CLEAR (CLEAR); *COLOR,URINE YELLOW (YELLOW); *KETONES,URINE TRACE (NEGATIVE); *PROTEIN,URINE 1+ (NEGATIVE); LEUKOCYTE ESTERASE ,URINE TRACE (NEGATIVE); NITRITE, URINE POSITIVE (NEGATIVE); PH,URINE 8.5 (5.0-8.0); UGLUCOSE TRACE (NEGATIVE)
[2023-06-17 18:15] LABS: *BILIRUBIN,URIN 1+ (NEGATIVE); *BLOOD, URINE TRACE (NEGATIVE)
[2023-06-17 18:28] LABS: BACTERIA,URINE MANY /HPF (NONE SEEN); SQUAMOUS EPITHELIAL CELL,UR MANY /HPF (NONE SEEN)
[2023-06-17] MEDS ORDERED: KETOROLAC TROMETHAMINE 30 MG INJ ONE (18:52)
[2023-06-17 18:54] LABS: BASOPHILS % (AUTO) 0.4 % (0.0-2.0); EOSINOPHILS # (AUTO) 0.1 K/uL (0.0-0.7); EOSINOPHILS % (AUTO) 1.6 % (0.0-7.0); HEMATOCRIT 38.1 % (31.2-41.9); LYMPHOCYTES # (AUTO) 2.5 K/uL (0.8-4.8); LYMPHOCYTES % (AUTO) 40.3 % (20.5-51.5); MEAN CORPUSCULAR HEMOGLOBIN 29.5 uug (24.7-32.8); MEAN CORPUSCULAR HGB CONC 34 g/dL (32.3-35.6); MEAN CORPUSCULAR VOLUME 86.1 fL (75.5-95.3); MONOCYTES # (AUTO) 0.3 K/uL (0.1-1.30); MONOCYTES % (AUTO) 5.5 % (0.0-11.0); NEUTROPHILS # (AUTO) 3.2 K/uL (1.8-8.9); NEUTROPHILS % (AUTO) 52.2 % (38.5-71.5); PLATELET COUNT (AUTO) 250 K/uL (179-408); RED BLOOD CELL COUNT(AUTO) 4.42 MIL/uL (3.63-4.92); RED CELL DISTRIBUTION WIDTH 13.4 % (12.3-17.7); WHITE BLOOD COUNT (AUTO) 6.2 K/uL (3.8-11.8)
[2023-06-17] MEDS: KETOROLAC TROMETHAMINE 30 MG INJ IVP ONE (18:57)
[2023-06-17 19:11] LABS: ALANINE AMINOTRANSFERASE 24 U/L (14-59); ALBUMIN 3.6 g/dL (3.4-5.0); ALKALINE PHOSPHATASE 120 U/L (50-136); ASPARTATE AMINOTRANSFERASE 13 U/L (15-37); BILIRUBIN,TOTAL 0.4 mg/dL (0.2-1.0); CALCIUM 9.1 mg/dL (8.5-10.1); CARBON DIOXIDE 26 mmol/L (21-32); CHLORIDE 93 mmol/L (98-107); CREATININE 0.7 mg/dL (0.6-1.3); GLUCOSE 96 mg/dL (74-106); POTASSIUM 4.4 mmol/L (3.5-5.1); SODIUM SERUM 131 mmol/L (136-145); TOTAL PROTEIN, SERUM 7.7 g/dL (6.4-8.2); UREA NITROGEN, BLOOD 11 mg/dL (7-18)
[2023-06-17 19:17] LABS: ETHANOL < 3 MG/DL (0-10)
[2023-06-17 19:18] LABS: DIFFERENTIAL COMMENT 1
[2023-06-17 19:48] LABS: *AMPHETAMINE, URINE NEGATIVE (NEGATIVE); *BARBITURATE, URINE NEGATIVE (NEGATIVE); *BENZODIAZEPINE, URINE NEGATIVE (NEGATIVE); *CANNABINOID, URINE NEGATIVE (NEGATIVE); *COCCAINE, URINE NEGATIVE (NEGATIVE); *OPIATE, URINE NEGATIVE (NEGATIVE); *PHENCYCLIDINE SCREEN,URINE NEGATIVE (NEGATIVE)
[2023-06-17 19:57] LABS: FENTANYL, URINE NEGATIVE (NEGATIVE)
[2023-06-17] MEDS ORDERED: NITR100C6 PO (20:35)
[2023-06-18 00:03] VITALS: BP 138/88; O2SAT 98
== END 2023-06-17 21:00 | disposition home or self-care (01) ==
LOC: ER 15:57
DX: R10.32 Left lower quadrant pain (principal); K21.9 Gastro-esophageal reflux disease without esophagitis; F31.9 Bipolar disorder, unspecified; Z98.890 Other specified postprocedural states; Z79.899 Other long term (current) drug therapy
CPT/HCPCS: 80053; 81001; 85025; 36415; 74176; 99285; 96374; 83605; 80320; 80307; J1885; A4606; A4663; G0480

== ENCOUNTER 2023-08-08 10:50 | Emergency (ER) | payer MEDICAID ==
[~2023-08-08] VITALS: Ht 170.2 cm; Wt 117.5 kg
[~2023-08-08 10:50] MED LIST changes: +AMOX-430 PO; +BUDE10.2 INH; +NITR100C6 PO
[2023-08-08 12:11] LABS: *CLARITY,URINE CLEAR (CLEAR); *COLOR,URINE YELLOW (YELLOW); *KETONES,URINE TRACE (NEGATIVE); *PROTEIN,URINE NEGATIVE (NEGATIVE); *UROBILINOGEN,URINE 0.2 E.U./dl (NORMAL); LEUKOCYTE ESTERASE ,URINE TRACE (NEGATIVE); NITRITE, URINE POSITIVE (NEGATIVE); UGLUCOSE NEGATIVE (NEGATIVE)
[2023-08-08 12:12] LABS: *BILIRUBIN,URIN 1+ (NEGATIVE); *BLOOD, URINE TRACE (NEGATIVE)
[2023-08-08] MEDS ORDERED: SULFAMETH/TRIMETH 800/160 MG TABLET ONE (12:46)
[2023-08-08] MEDS ORDERED: ACETAMINOPHEN ES 500 MG TABLET ONE (12:46)
[2023-08-08] MEDS: SULFAMETH/TRIMETH 800/160 MG TABLET PO ONE (12:47)
[2023-08-08] MEDS: ACETAMINOPHEN ES 500 MG TABLET PO ONE (12:47)
[2023-08-08] MEDS ORDERED: PHEN-704 PO (12:49)
[2023-08-08] MEDS ORDERED: SULF1TAB48 PO (12:49)
[2023-08-08 13:05] VITALS: BP 133/70; TEMP 97; O2SAT 99
[2023-08-08 17:08] LABS: BACTERIA,URINE FEW /HPF (NONE SEEN)
== END 2023-08-08 13:06 | disposition home or self-care (01) ==
LOC: ER 10:50
DX: N39.0 Urinary tract infection, site not specified (principal); K21.9 Gastro-esophageal reflux disease without esophagitis; F31.9 Bipolar disorder, unspecified; Z90.49 Acquired absence of other specified parts of digestive tract; Z79.899 Other long term (current) drug therapy
CPT/HCPCS: A4606; A4663; A9150

== ENCOUNTER 2023-09-01 11:08 | Emergency (ER) | payer MEDICAID ==
[~2023-09-01] VITALS: Ht 170.2 cm; Wt 117.9 kg
[~2023-09-01 11:08] MED LIST changes: +PHEN-704 PO; +SULF1TAB48 PO
[2023-09-01 11:28] LABS: *BILIRUBIN,URIN NEGATIVE (NEGATIVE); *CLARITY,URINE CLEAR (CLEAR); *COLOR,URINE YELLOW (YELLOW); *KETONES,URINE NEGATIVE (NEGATIVE); *PROTEIN,URINE NEGATIVE (NEGATIVE); *UROBILINOGEN,URINE 0.2 E.U./dl (NORMAL); LEUKOCYTE ESTERASE ,URINE 1+ (NEGATIVE); NITRITE, URINE NEGATIVE (NEGATIVE); UGLUCOSE NEGATIVE (NEGATIVE)
[2023-09-01 11:35] LABS: *BLOOD, URINE TRACE (NEGATIVE)
[2023-09-01 11:48] LABS: BACTERIA,URINE MODERATE /HPF (NONE SEEN); RBC,URINE 0-3 /HPF (0-3); SQUAMOUS EPITHELIAL CELL,UR MODERATE /HPF (NONE SEEN); WBC,URINE 50-80 /HPF (0-3)
[2023-09-01] MEDS ORDERED: SWABABLE VALVE TRANSFER SET EA MC ONE (11:48)
[2023-09-01] MEDS ORDERED: IOHEXOL 300MG/ML 100 ML INFUS..BTL ONE (11:48)
[2023-09-01] MEDS ORDERED: IV NORMAL SALINE 250 ML IV ONE (11:49)
[2023-09-01 11:50] LABS: BASOPHILS % (AUTO) 0.3 % (0.0-2.0); EOSINOPHILS # (AUTO) 0.1 K/uL (0.0-0.7); EOSINOPHILS % (AUTO) 2.1 % (0.0-7.0); HEMATOCRIT 39.1 % (31.2-41.9); HEMOGLOBIN 12.8 g/dL (10.9-14.3); LYMPHOCYTES # (AUTO) 1.9 K/uL (0.8-4.8); LYMPHOCYTES % (AUTO) 36.5 % (20.5-51.5); MEAN CORPUSCULAR HEMOGLOBIN 29.2 uug (24.7-32.8); MEAN CORPUSCULAR HGB CONC 33 g/dL (32.3-35.6); MEAN CORPUSCULAR VOLUME 89.3 fL (75.5-95.3); MONOCYTES # (AUTO) 0.2 K/uL (0.1-1.30); MONOCYTES % (AUTO) 4.3 % (0.0-11.0); NEUTROPHILS # (AUTO) 2.9 K/uL (1.8-8.9); NEUTROPHILS % (AUTO) 56.8 % (38.5-71.5); PLATELET COUNT (AUTO) 242 K/uL (179-408); RED BLOOD CELL COUNT(AUTO) 4.38 MIL/uL (3.63-4.92); RED CELL DISTRIBUTION WIDTH 14.5 % (12.3-17.7); WHITE BLOOD COUNT (AUTO) 5.1 K/uL (3.8-11.8)
[2023-09-01 11:58] LABS: DIFFERENTIAL COMMENT 1
[2023-09-01 12:08] LABS: CALCIUM 9.2 mg/dL (8.5-10.1); CREATININE 0.8 mg/dL (0.6-1.3); POTASSIUM 3.9 mmol/L (3.5-5.1)
[2023-09-01 12:18] LABS: ALBUMIN 3.7 g/dL (3.4-5.0); BILIRUBIN,DIRECT 0.1 mg/dL (0.0-0.2); BILIRUBIN,TOTAL 0.2 mg/dL (0.2-1.0); TOTAL PROTEIN, SERUM 7.5 g/dL (6.4-8.2)
[2023-09-01] MEDS ORDERED: CEFTRIAXONE /D5W 50ML IVPB **ER PYXIS IV ONE (12:19)
[2023-09-01] MEDS ORDERED: DOXYCYCLINE HYCLATE 100 MG TABLET ONE (12:19)
[2023-09-01] MEDS ORDERED: METRONIDAZOLE 500 MG TABLET ONE (12:19)
[2023-09-01] MEDS: CEFTRIAXONE 1 G in IV DEXTROSE 5% 50 ML IV ONE (12:23)
[2023-09-01] MEDS: DOXYCYCLINE HYCLATE 100 MG TABLET PO ONE (12:24)
[2023-09-01] MEDS: METRONIDAZOLE 500 MG TABLET PO ONE (12:24)
[2023-09-01] MEDS ORDERED: ACETAMINOPHEN 500 MG TABLET ONE (13:38)
[2023-09-01] MEDS: ACETAMINOPHEN 500 MG TABLET PO ONE (13:39)
[2023-09-01] MEDS ORDERED: DOXY100C5 PO (14:39)
[2023-09-01] MEDS ORDERED: CEFD300C3 PO (14:39)
[2023-09-01] MEDS ORDERED: ONDA4TAB5 PO (14:41)
[2023-09-01] MEDS ORDERED: HYDR-501 PO (14:46)
[2023-09-01 15:05] VITALS: BP 150/100; TEMP 98.3; O2SAT 97
[2023-09-03 07:09] LABS: *CHLAMYDIA NAA Negative (Negative); *GC NAA Negative (Negative); *TRIC.VAG. NAA Negative (Negative)
== END 2023-09-01 15:11 | disposition home or self-care (01) ==
LOC: ER 11:08
DX: N39.0 Urinary tract infection, site not specified (principal); R30.0 Dysuria; K21.9 Gastro-esophageal reflux disease without esophagitis; F31.9 Bipolar disorder, unspecified; Z90.49 Acquired absence of other specified parts of digestive tract; Z79.899 Other long term (current) drug therapy; Z79.891 Long term (current) use of opiate analgesic
CPT/HCPCS: 99285; 74177; 96365; 76856; 80076; 80048; 81001; 83690; 85025; 87210; 84484; 36415; 87491; J0696; Q9967; A4606; A4663; A9150

== ENCOUNTER 2023-10-03 10:17 | Emergency (ER) | payer MEDICAID ==
[~2023-10-03] VITALS: Ht 170.2 cm; Wt 117.9 kg
[~2023-10-03 10:17] MED LIST changes: +CEFD300C3 PO; +HYDR-501 PO; +ONDA4TAB5 PO
[2023-10-03 10:58] LABS: *BILIRUBIN,URIN NEGATIVE (NEGATIVE); *CLARITY,URINE CLEAR (CLEAR); *COLOR,URINE DARK YELLOW (YELLOW); *KETONES,URINE NEGATIVE (NEGATIVE); *PROTEIN,URINE NEGATIVE (NEGATIVE); LEUKOCYTE ESTERASE ,URINE 1+ (NEGATIVE); NITRITE, URINE POSITIVE (NEGATIVE); PH,URINE 6.5 (5.0-8.0); UGLUCOSE NEGATIVE (NEGATIVE)
[2023-10-03 11:02] LABS: *BLOOD, URINE TRACE (NEGATIVE)
[2023-10-03 11:06] LABS: BASOPHILS % (AUTO) 0.4 % (0.0-2.0); EOSINOPHILS # (AUTO) 0.1 K/uL (0.0-0.7); EOSINOPHILS % (AUTO) 1.7 % (0.0-7.0); HEMATOCRIT 39.9 % (31.2-41.9); HEMOGLOBIN 13.1 g/dL (10.9-14.3); LYMPHOCYTES # (AUTO) 1.6 K/uL (0.8-4.8); LYMPHOCYTES % (AUTO) 34.6 % (20.5-51.5); MEAN CORPUSCULAR HEMOGLOBIN 29.4 uug (24.7-32.8); MEAN CORPUSCULAR HGB CONC 33 g/dL (32.3-35.6); MEAN CORPUSCULAR VOLUME 89.2 fL (75.5-95.3); MONOCYTES # (AUTO) 0.2 K/uL (0.1-1.30); MONOCYTES % (AUTO) 5.4 % (0.0-11.0); NEUTROPHILS # (AUTO) 2.7 K/uL (1.8-8.9); NEUTROPHILS % (AUTO) 57.9 % (38.5-71.5); PLATELET COUNT (AUTO) 223 K/uL (179-408); RED BLOOD CELL COUNT(AUTO) 4.47 MIL/uL (3.63-4.92); WHITE BLOOD COUNT (AUTO) 4.6 K/uL (3.8-11.8)
[2023-10-03 11:13] LABS: DIFFERENTIAL COMMENT 1
[2023-10-03 11:14] LABS: POTASSIUM 4.2 mmol/L (3.5-5.1)
[2023-10-03 11:20] LABS: ALBUMIN 3.7 g/dL (3.4-5.0); BILIRUBIN,TOTAL 0.3 mg/dL (0.2-1.0); TOTAL PROTEIN, SERUM 7.5 g/dL (6.4-8.2)
[2023-10-03 11:22] LABS: RBC,URINE 0-3 /HPF (0-3); SQUAMOUS EPITHELIAL CELL,UR MANY /HPF (NONE SEEN)
[2023-10-03 11:23] LABS: BACTERIA,URINE MODERATE /HPF (NONE SEEN)
[2023-10-03] MEDS ORDERED: SULFAMETH/TRIMETH 800/160 MG TABLET ONE (11:47)
[2023-10-03] MEDS: SULFAMETH/TRIMETH 800/160 MG TABLET PO ONE (11:48)
[2023-10-03] MEDS ORDERED: SULF1TAB48 PO (11:58)
[2023-10-03] MEDS ORDERED: PHEN-705 PO (11:58)
[2023-10-03 12:02] VITALS: BP 143/87; O2SAT 97
== END 2023-10-03 12:06 | disposition home or self-care (01) ==
LOC: ER 10:17
DX: N30.00 Acute cystitis without hematuria (principal); F31.81 Bipolar II disorder; M79.7 Fibromyalgia; K21.9 Gastro-esophageal reflux disease without esophagitis; F31.9 Bipolar disorder, unspecified; Z90.49 Acquired absence of other specified parts of digestive tract; Z79.899 Other long term (current) drug therapy; Z79.891 Long term (current) use of opiate analgesic; Z79.1 Long term (current) use of non-steroidal anti-inflammatories (NSAID)
CPT/HCPCS: 36415; 83735; 85025; A4606; A4663

== ENCOUNTER 2023-10-14 18:45 | Emergency (ER) | payer MEDICAID ==
[~2023-10-14] VITALS: Ht 170.2 cm; Wt 117.9 kg
[2023-10-14 19:35] LABS: *BILIRUBIN,URIN NEGATIVE (NEGATIVE); *CLARITY,URINE CLEAR (CLEAR); *COLOR,URINE YELLOW (YELLOW); *KETONES,URINE TRACE (NEGATIVE); *PROTEIN,URINE NEGATIVE (NEGATIVE); *UROBILINOGEN,URINE 0.2 E.U./dl (NORMAL); LEUKOCYTE ESTERASE ,URINE NEGATIVE (NEGATIVE); NITRITE, URINE NEGATIVE (NEGATIVE); PH,URINE 5.5 (5.0-8.0); UGLUCOSE NEGATIVE (NEGATIVE)
[2023-10-14 19:37] LABS: *BLOOD, URINE TRACE (NEGATIVE)
[2023-10-14] MEDS ORDERED: DIAZEPAM 5 MG TABLET ONE (19:38)
[2023-10-14] MEDS: DIAZEPAM 2 MG TABLET PO ONE (19:47)
[2023-10-14 19:51] LABS: BASOPHILS % (AUTO) 0.4 % (0.0-2.0); EOSINOPHILS # (AUTO) 0.1 K/uL (0.0-0.7); EOSINOPHILS % (AUTO) 2.2 % (0.0-7.0); HEMATOCRIT 39.5 % (31.2-41.9); HEMOGLOBIN 13.1 g/dL (10.9-14.3); LYMPHOCYTES # (AUTO) 2.2 K/uL (0.8-4.8); LYMPHOCYTES % (AUTO) 36.4 % (20.5-51.5); MEAN CORPUSCULAR HEMOGLOBIN 29.8 uug (24.7-32.8); MEAN CORPUSCULAR HGB CONC 33 g/dL (32.3-35.6); MEAN CORPUSCULAR VOLUME 89.8 fL (75.5-95.3); MONOCYTES # (AUTO) 0.3 K/uL (0.1-1.30); MONOCYTES % (AUTO) 5.4 % (0.0-11.0); NEUTROPHILS # (AUTO) 3.4 K/uL (1.8-8.9); NEUTROPHILS % (AUTO) 55.6 % (38.5-71.5); PLATELET COUNT (AUTO) 220 K/uL (179-408); RED CELL DISTRIBUTION WIDTH 14.3 % (12.3-17.7); WHITE BLOOD COUNT (AUTO) 6.1 K/uL (3.8-11.8)
[2023-10-14 19:55] LABS: DIFFERENTIAL COMMENT 1
[2023-10-14 19:56] LABS: RBC,URINE 0-3 /HPF (0-3)
[2023-10-14 19:57] LABS: BACTERIA,URINE FEW /HPF (NONE SEEN); SQUAMOUS EPITHELIAL CELL,UR MANY /HPF (NONE SEEN); WBC,URINE 0-3 /HPF (0-3)
[2023-10-14 19:59] LABS: CALCIUM 9.2 mg/dL (8.5-10.1); CARBON DIOXIDE 30 mmol/L (21-32); CHLORIDE 105 mmol/L (98-107); CREATININE 0.9 mg/dL (0.6-1.3); GLUCOSE 122 mg/dL (74-106); SODIUM SERUM 142 mmol/L (136-145); UREA NITROGEN, BLOOD 14 mg/dL (7-18)
[2023-10-14 20:04] LABS: ALANINE AMINOTRANSFERASE 20 U/L (14-59); ALBUMIN 3.8 g/dL (3.4-5.0); ALKALINE PHOSPHATASE 121 U/L (50-136); ASPARTATE AMINOTRANSFERASE 9 U/L (15-37); BILIRUBIN,DIRECT < 0.1 mg/dL (0.0-0.2); BILIRUBIN,TOTAL 0.2 mg/dL (0.2-1.0); LIPASE 42 U/L (16-77); TOTAL PROTEIN, SERUM 7.6 g/dL (6.4-8.2)
[2023-10-14] MEDS ORDERED: DIAZEPAM 10 MG/2 ML DISP.SYRIN ONE (20:18)
[2023-10-14] MEDS: DIAZEPAM 10 MG/2 ML DISP.SYRIN IV ONE (20:20)
[2023-10-14] MEDS ORDERED: SWABABLE VALVE TRANSFER SET EA MC ONE (20:26)
[2023-10-14] MEDS ORDERED: IOHEXOL 300MG/ML 100 ML INFUS..BTL ONE (20:26)
[2023-10-14] MEDS ORDERED: IV NORMAL SALINE 250 ML IV ONE (20:26)
[2023-10-14 22:05] VITALS: BP 142/79; O2SAT 98
== END 2023-10-14 22:05 | disposition home or self-care (01) ==
LOC: ER 18:46
DX: M79.7 Fibromyalgia (principal); R30.0 Dysuria; F41.9 Anxiety disorder, unspecified; R10.9 Unspecified abdominal pain; K21.9 Gastro-esophageal reflux disease without esophagitis; Z90.49 Acquired absence of other specified parts of digestive tract; Z79.891 Long term (current) use of opiate analgesic; Z79.899 Other long term (current) drug therapy
CPT/HCPCS: 99285; 74177; 96374; 80076; 80048; 81001; 83690; 85025; 87210; 36415; J3360; Q9967; A4606; A4663

== ENCOUNTER 2024-10-16 13:00 | Emergency (ER) | payer MEDICAID ==
[~2024-10-16] VITALS: Ht 167.6 cm; Wt 117.0 kg
[2024-10-16 13:05] VITALS: BP 159/97
[2024-10-16 13:32] LABS: *BILIRUBIN,URIN NEGATIVE (NEGATIVE); *BLOOD, URINE 1+ (NEGATIVE); *CLARITY,URINE CLEAR (CLEAR); *COLOR,URINE YELLOW (YELLOW); *KETONES,URINE NEGATIVE (NEGATIVE); *PROTEIN,URINE NEGATIVE (NEGATIVE); *UROBILINOGEN,URINE 0.2 E.U./dl (NORMAL); LEUKOCYTE ESTERASE ,URINE NEGATIVE (NEGATIVE); NITRITE, URINE POSITIVE (NEGATIVE); UGLUCOSE NEGATIVE (NEGATIVE)
[2024-10-16 14:04] LABS: SQUAMOUS EPITHELIAL CELL,UR FEW /HPF (NONE SEEN)
[2024-10-16 15:14] LABS: PLATELET COUNT (AUTO) 202 K/uL (179-408); RED BLOOD CELL COUNT(AUTO) 4.31 MIL/uL (3.63-4.92); RED CELL DISTRIBUTION WIDTH 14.0 % (12.3-17.7); WHITE BLOOD COUNT (AUTO) 5.2 K/uL (3.8-11.8)
[2024-10-16 15:25] LABS: CREATININE 0.7 mg/dL (0.6-1.3); SODIUM SERUM 143.0 mmol/L (136-145); UREA NITROGEN, BLOOD 10.0 mg/dL (7-18)
[2024-10-16 16:23] VITALS: BP 159/97; O2SAT 95
== END 2024-10-16 16:23 | disposition home or self-care (01) ==
LOC: ER 13:00
DX: R10.9 Unspecified abdominal pain (principal); R31.9 Hematuria, unspecified; M79.7 Fibromyalgia; K21.9 Gastro-esophageal reflux disease without esophagitis; F31.9 Bipolar disorder, unspecified; Z79.51 Long term (current) use of inhaled steroids; Z79.899 Other long term (current) drug therapy; Z87.19 Personal history of other diseases of the digestive system; Z87.442 Personal history of urinary calculi; Z90.49 Acquired absence of other specified parts of digestive tract
CPT/HCPCS: 36415; 85025; 87086; A4606; A4663

== ENCOUNTER 2024-12-14 13:25 | Emergency (ER) | payer MEDICAID ==
[~2024-12-14] VITALS: Ht 170.2 cm; Wt 117.9 kg
[2024-12-14 13:28] VITALS: BP 141/86
[2024-12-14] MEDS ORDERED: AMOX-430 PO (15:38)
[2024-12-14] MEDS ORDERED: PRED50TA PO (15:38)
[2024-12-14] MEDS ORDERED: METO5TAB87 PO (15:41)
[2024-12-14] MEDS ORDERED: ACETAMINOPHEN 500 MG TABLET ONE (15:46)
[2024-12-14] MEDS ORDERED: IBUPROFEN 800 MG TABLET ONE (15:47)
[2024-12-14] MEDS: IBUPROFEN 800 MG TABLET PO ONE (15:51)
[2024-12-14] MEDS: ACETAMINOPHEN 500 MG TABLET PO ONE (15:51)
[2024-12-14 15:56] VITALS: BP 140/80; TEMP 98.2; O2SAT 98
== END 2024-12-14 15:57 | disposition home or self-care (01) ==
LOC: ER 13:25
DX: R51.9 Headache, unspecified (principal); J32.9 Chronic sinusitis, unspecified; F41.9 Anxiety disorder, unspecified; F31.9 Bipolar disorder, unspecified; M79.7 Fibromyalgia; Z79.51 Long term (current) use of inhaled steroids; Z79.52 Long term (current) use of systemic steroids; Z79.899 Other long term (current) drug therapy; Z87.19 Personal history of other diseases of the digestive system; Z87.442 Personal history of urinary calculi; Z90.49 Acquired absence of other specified parts of digestive tract
CPT/HCPCS: A4606; A4663; A9150